=== PATIENT | female | born 1995 | race Caucasian/White ===

== ENCOUNTER 2019-03-28 06:16 | Day surgery (SDC) | payer OTHER ==
[~2019-03-28] VITALS: Ht 157.5 cm; Wt 97.0 kg
[~2019-03-28 06:16] MED LIST: CETI10CA2 PO; CYMB1CAP5 PO; FLUO20CA8 PO; HYDR-3713 PO; IBUP-1022 PO; INDE60CA4 PO; OMEP10CASR PO; VITA50005 PO
[2019-03-28] MEDS ORDERED: LR 1,000 ML IV ONE (06:30)
[2019-03-28] MEDS ORDERED: LIDOCAINE 2% INJ 100 MG/5 ML SDV (FOR ANES.) As Ordered ONE (07:10)
[2019-03-28] MEDS ORDERED: fentaNYL 250 MCG/5 ML INJECTION (J3010) As Ordered ONE (07:10)
[2019-03-28] MEDS ORDERED: ROCURONIUM BROMIDE 50 MG/5 ML VIAL As Ordered ONE (07:10)
[2019-03-28] MEDS ORDERED: MIDAZOLAM INJ 2 MG/2 ML VIAL (J2250) As Ordered ONE (07:10)
[2019-03-28] MEDS ORDERED: ONDANSETRON 4MG/2ML VIAL (J2405) As Ordered ONE (07:11)
[2019-03-28] MEDS ORDERED: dexameTHASONE 4 MG/ML 1ML VIAL (J1100) As Ordered ONE (07:11)
[2019-03-28] MEDS ORDERED: PROPOFOL 200 MG/20 ML VIAL As Ordered ONE ×2 (07:11→08:20)
[2019-03-28] MEDS ORDERED: LIDOCAINE W/EPINEPHRINE 1% 20ML VIAL As Ordered ONE (07:12)
[2019-03-28] MEDS ORDERED: OXYMETAZOLINE NASAL SPRAY (AFRIN) As Ordered ONE (07:19)
[2019-03-28 07:34] LABS: URINE PREG TEST NEGATIVE (NEGATIVE)
[2019-03-28] MEDS ORDERED: SUGAMMADEX SODIUM 500 MG/5 ML VIAL (BRIDION) As Ordered ONE (07:42)
[2019-03-28] MEDS ORDERED: NORCO, ANEXSIA 5/325MG TABLET (HYDROcodone/ACETAMINOPHEN) As Ordered ONE ×2 (08:59→12:28)
[2019-03-28] MEDS ORDERED: fentaNYL 100 MCG/2 ML INJECTION (J3010) IV PRN (09:00)
[2019-03-28] MEDS ORDERED: NORCO, ANEXSIA 5/325MG TABLET (HYDROcodone/ACETAMINOPHEN) PO PRN (09:00)
[2019-03-28] MEDS ORDERED: LR 1,000 ML IV SCH ×2 (09:00→09:15)
--- NOTE | 2019-03-28 10:12 | RO ---
DATE OF PROCEDURE: 03/28/2019 PREOPERATIVE DIAGNOSIS: Non-restorable teeth. POSTOPERATIVE DIAGNOSIS: Non-restorable teeth. PROCEDURE PERFORMED: Extraction of teeth number 6, 7, 8, 9, 10, 11, 16, 18, 19, 30, 31. COMPLICATIONS: None. SURGEON: Dr. Rucker ANESTHESIA: General. SPECIMEN: Teeth. ESTIMATED BLOOD LOSS: 10 mL. The rest of the dictation will be completed on [employer].
[2019-03-28 12:21] VITALS: BP 128/83
== END 2019-03-28 12:35 | disposition home or self-care (01) ==
LOC: M SDC 06:16 → MERGE 09:30 → M SDC 12:35
PROVIDERS: ATTEND Dentist Oral and Maxillofacial Surgery
DX: K02.9 Dental caries, unspecified (principal); K21.9 Gastro-esophageal reflux disease without esophagitis; G43.909 Migraine, unspecified, not intractable, without status migrainosus; F41.9 Anxiety disorder, unspecified; F32.9 Major depressive disorder, single episode, unspecified; Z79.899 Other long term (current) drug therapy; Z88.5 Allergy status to narcotic agent
CPT/HCPCS: 36415; 84703; 86850; 86900; 86901; 88300; D7210; D9223; J1100; J2250; J2405; J3010